=== PATIENT | female | born 1935 | race Caucasian/White ===

== ENCOUNTER → 2017-07-31 | Day surgery (SDC) | payer MEDICARE ==
[~2017-07-31] MED LIST: Lidocaine 1% PF 5 ML VIAL ONE; Succinylcholine Chloride 20 MG/ML 10 ml SYRINGE FS ONE
[2017-07-31 10:32] LABS: #Eosinphils 0.2 thou/uL (0.0-0.7); #Lymphocytes 1.1 thou/uL (1.20-3.40); #Monocytes 0.6 thou/uL (0.11-0.59); #Neutrophils 12.1 thou/uL (1.40-6.50); %Basophils 0.1 % (0.0-1.0); %Eosinophils 1.6 % (0.0-10.0); %Lymphocytes 7.8 % (21.0-51.0); %Monocytes 4.5 % (0.0-10.0); Hematocrit 42.9 % (36.0-47.0); Red Blood Cell (RBC) Count 4.77 mill/uL (4.20-5.40)
[2017-07-31 10:54] LABS: ALT (SGPT) 18 U/L (8-55); AST (SGOT) 31 U/L (5-34); Alkaline Phosphatase 179 U/L (40-150); Anion Gap 13 mmol/L (10-20); BUN (Urea Nitrogen) 13 mg/dL (9.8-20.1); Bilirubin, Total 0.7 mg/dL (0.2-1.2); CK (CPK) 29 U/L (29-168); Calc. Creatinine Clearance 0 mL/min (70-130); Calcium 9.5 mg/dL (7.8-10.44); Carbon Dioxide 26 mmol/L (23-31); Chloride 100 mmol/L (98-107); Estimated GFR-MDRD Greater than 90; Globulin 3.9 g/dL (2.4-3.5); Protein, Total 7.7 g/dL (6.0-8.3)
--- NOTE | 2017-07-31 11:40 | CON ---
DATE OF CONSULTATION: 07/31/2017 HISTORY OF PRESENT ILLNESS: The patient is an 81-year-old female who was in her normal sta te of health until 24 hours prior to admission when she developed difficulty swallowing. She has had this problem in the past and has undergone 2 foreign body extractions. Reviewing the last one from December of this year, Dr. Cook apparently found an area of maceration with a large amount of food in the esophagus. She is reportedly on hospice for congestive heart failure. PAST MEDICAL HISTORY: Includes, 1. Congestive heart failure. 2. Atrial fibrillation on Xarelto. 3. Arthritis. 4. Asthma. PAST SURGICAL HISTORY: Appendectomy, hysterectomy, left knee surgery, left foot surgery, vein stripp ing, bladder suspension, and cataracts. ALLERGIES: Include MACROBID and SULFA. MEDICATIONS: Include Ativan 0.5 mg p.r.n., Chronulac 15 grams p.o. day, amiodarone 200 mg 1 p.o. noelle ly, Ditropan 5 mg p.o. b.i.d., Dulcolax 10 mg p.r.n., Elavil 50 mg p.o. at bedtime, guaifenesin 600 m g p.o. every day p.r.n., Haldol 0.5 mg p.o. q.i.d. p.r.n., Levoxyl 125 mcg p.o. daily, MiraLax 17 gra ms p.o. daily, morphine sulfate p.r.n., Neurontin 300 mg p.o. t.i.d., Prilosec 40 mg p.o. daily, Rest oril 7.5 mg p.o. at bedtime, Xarelto 15 mg p.o. daily. She reports she has not had this in 2 days, Z oloft 50 mg p.o. b.i.d. SOCIAL HISTORY: She lives at home. She was on hospice. She does not smoke or drink. FAMILY HISTORY: Negative for GI or liver disease. REVIEW OF SYSTEMS: Unobtainable. PHYSICAL EXAMINATION: GENERAL: Shows an elderly white female in no acute distress. VITAL SIGNS: Stable. She is afebrile. HEENT: Unremarkable. NECK: Supple. CHEST: Clear. CARDIOVASCULAR: Regular rate and rhythm. ABDOMEN: Soft and nontender without organomegaly or masses. RECTAL: Deferred. EXTREMITIES: Normal. NEUROLOGIC: Nonfocal. LABORATORY DATA: Shows a white blood cell count of 14.0, hemoglobin 14.3, hematocrit of 42.9. ASSESSMENT: 1. Esophageal foreign body. 2. Congestive heart failure. 3. Afebrile on Xarelto. RECOMMENDATIONS: EGD with foreign body extraction.
[2017-07-31 11:54] LABS: Troponin I 0.013 ng/mL (< 0.028)
--- NOTE | 2017-07-31 12:12 | RAD ---
CHEST 1 VIEW: COMPARISON: 03/31/17 exam. HISTORY: Difficulty swallowing. Possible foreign body. FINDINGS: Heart size within normal limits. Interstitial markings are increased which appear to be chronic in n ature. Slightly more prominent than on the prior exam, but I think this is largely technique differe nces. IMPRESSION: Chronic interstitial lung change. No foreign bodies identified. POS: [facility]
--- NOTE | 2017-07-31 16:22 | OP ---
PREOPERATIVE DIAGNOSES: Esophageal foreign body, acute dysphagia. PROCEDURE: After informed consent was obtained, the patient was placed in the left lateral decubitus position. Anesthesia administered per the Anesthesia Department. Forward-viewing endoscope was ins erted into the esophagus under direct visualization with ease where a large amount of soft food was e ncountered. This food was removed with suction and irrigation and a Kim Net. Eventually, the esoph magnolia was cleared. At the 35 cm from the incisors, the luminal narrowing was noted. A balloon was pu t across this and inflated to stage II deflated and then repositioned inflated to stage III and defla odilia and then no post-dilatation changes were noted. No post-dilatation bleeding was seen. A large h iatal hernia was noted. The rest of the stomach and duodenum were normal. ASSESSMENT: 1. Esophageal dysmotility -- it may be some underlying achalasia or possibly dysmotility related to her large hiatal hernia. 2. Large hiatal hernia. RECOMMENDATIONS: Resume liquid diet for 24 hours and then go to a pureed diet thereafter.
--- NOTE | 2017-08-27 10:41 | EKG ---
Test Reason : Blood Pressure : / mmHG Vent. Rate : 067 BPM Atrial Rate : 067 BPM P-R Int : 182 ms QRS Dur : 088 ms QT Int : 438 ms P-R-T Axes : 060 011 040 degrees QTc Int : 462 ms Normal sinus rhythm Normal ECG Confirmed by CHRISTINE Solano, DAGO ([id number]), video news editor YAZ TERRAZAS ([id number] on 08/27/2017 10:41:28 AM Referred By: DR COLIN Confirmed By:DAGO KING M.D.
== END ==
LOC: ERS 09:30 → SJX 11:40
PROVIDERS: ATTEND Internal Medicine Gastroenterology
PROC: 0DC58ZZ Extirpation of Matter from Esophagus, Via Natural or Artificial Opening Endoscopic (ICD-10-PCS; principal; 2017-07-31)
PROC: 0D758ZZ Dilation of Esophagus, Via Natural or Artificial Opening Endoscopic (ICD-10-PCS; 2017-07-31)
DX: T18.128A Food in esophagus causing other injury, initial encounter (principal); K22.4 Dyskinesia of esophagus; K44.9 Diaphragmatic hernia without obstruction or gangrene; Z88.2 Allergy status to sulfonamides; Z88.8 Allergy status to other drugs, medicaments and biological substances
CPT/HCPCS: 36415; 71010; 80053; 82550; 82553; 84484; 85025; 93005; 94760; J2001